=== PATIENT | female | born 1965 | race Caucasian/White ===

== ENCOUNTER → 2019-12-22 09:16 | Outpatient (CLI) | payer OTHER, SELFPAY ==
--- NOTE | ~2019-12-22 | DEXA_ITS ---
Bone Density Report Name: Marry Jordan Age: 54 Sex: Female Ethnicity: White Date of : 1965 Indication: postmenopausal; screening for osteoporosis; cancer; Referring Provider: HAROON NEFF Study: Bone densitometry was performed. Exam Date: December 22, 2019 Accession number: [id number] Bone Density: Region BMD T-score Z-score Classification AP Spine (L1-L4) 1.008 -0.4 0.7 Normal Femoral Neck (Left) 0.959 1.0 2.1 Normal Total Hip (Left) 1.053 0.9 1.6 Normal Femoral Neck (Right) 0.957 1.0 2.0 Normal Total Hip (Right) 1.088 1.2 1.9 Normal Total Hip Mean 1.071 1.1 1.8 Normal World Health Organization criteria for BMD impression classify patients as: Normal (T-score at or above -1.0), Osteopenia (T-score between -1.0 and -2.5), or Osteoporosis (T-score at or below -2.5). 10-year Fracture Risk: FRAX not reported because: All T-scores for Spine Total, Hip Total, Femoral Neck at or above -1.0 Previous Exams: Region Exam Age BMD T-score BMD Change BMD Change Date g/cm2 vs Baseline vs Previous AP Spine(L1-L4) 12/22/2019 54 1.008 -0.4 -0.073* -0.023 11/19/2017 52 1.031 -0.1 -0.050 -0.050 09/23/2014 49 1.081 0.3 Total Hip(Left) 12/22/2019 54 1.053 0.9 -0.017 -0.027 11/19/2017 52 1.080 1.1 0.010 0.010 09/23/2014 49 1.070 1.0 Total Hip(Right) 12/22/2019 54 1.088 1.2 -0.051* -0.048 11/19/2017 52 1.137 1.6 -0.002 -0.002 09/23/2014 49 1.139 1.6 *Denotes significance at 95% confidence level, LSC for AP Spine = 0.022 g/cm2, LSC for Total Hip = 0.027 g/cm2 Clinical Information Provided by Patient: Has used the following medications: Vitamin D Has the following medical conditions: Cancer Patient maximum height was 65 Menopause Age: 39 No regular weight bearing exercise Does not regularly consume dairy products Onset of menses at age 12 Number of children 0 Impression: The patient has normal bone mass. No significant bone loss was observed. Discussion: BONE DENSITY IS ABOVE THE MINIMUM DESIRABLE LEVEL AT ALL SKELETAL SITES TESTED. This patient?s bone mineral density is above the minimum desirable level (T-score -1.0 or better) at all sites measured. The patient should follow a healthful lifestyle (good nutrition with adequate calcium and vitamin D, and appropriate weight-bearing exercise). Fo
== END ==
PROVIDERS: Visit Provider Obstetrics & Gynecology
DX: Z78.0 Asymptomatic menopausal state (principal); Z13.820 Encounter for screening for osteoporosis
CPT/HCPCS: 77080

== ENCOUNTER 2020-10-01 12:37 | Outpatient (NON) | payer OTHER, SELFPAY ==
[2020-10-02 23:03] LABS: SARS-CoV-2 RNA PCR Positive
== END 2020-10-01 12:38 ==
PROVIDERS: Visit Provider Family Medicine Adolescent Medicine
DX: U07.1 COVID-19 (principal)
CPT/HCPCS: 87635; C9803; U0003

== ENCOUNTER → 2023-02-13 13:16 | Outpatient (CLI) | payer OTHER, SELFPAY ==
--- NOTE | ~2023-02-13 | DEXA_ITS ---
Bone Density Report Name: MELISSA BARRIGA Age: 57 Sex: Female Ethnicity: White Date of : 1965 Indication: postmenopausal; screening for osteoporosis; Referring Provider: QUOC, BARRY Study: Bone densitometry was performed. Exam Date: February 13, 2023 Accession number: [id number] Bone Density: Region BMD T-score Z-score Classification AP Spine (L1-L4) 1.057 0.1 1.4 Normal Femoral Neck (Left) 0.915 0.6 1.8 Normal Total Hip (Left) 1.076 1.1 2.0 Normal Femoral Neck (Right) 0.981 1.2 2.4 Normal Total Hip (Right) 1.136 1.6 2.5 Normal Total Hip Mean 1.106 1.4 2.3 Normal World Health Organization criteria for BMD impression classify patients as: Normal (T-score at or above -1.0), Osteopenia (T-score between -1.0 and -2.5), or Osteoporosis (T-score at or below -2.5). 10-year Fracture Risk: FRAX not reported because: All T-scores for Spine Total, Hip Total, Femoral Neck at or above -1.0 Previous Exams: Region Exam Age BMD T-score BMD Change BMD Change Date g/cm2 vs Baseline vs Previous AP Spine(L1-L4) 02/13/2023 57 1.057 0.1 -0.023* 0.050* 12/22/2019 54 1.008 -0.4 -0.073* -0.023 11/19/2017 52 1.031 -0.1 -0.050 -0.050 09/23/2014 49 1.081 0.3 Total Hip(Left) 02/13/2023 57 1.076 1.1 0.006 0.023 12/22/2019 54 1.053 0.9 -0.017 -0.027 11/19/2017 52 1.080 1.1 0.010 0.010 09/23/2014 49 1.070 1.0 Total Hip(Right) 02/13/2023 57 1.136 1.6 -0.003 0.048* 12/22/2019 54 1.088 1.2 -0.051* -0.048 11/19/2017 52 1.137 1.6 -0.002 -0.002 09/23/2014 49 1.139 1.6 *Denotes significance at 95% confidence level, LSC for AP Spine = 0.022 g/cm2, LSC for Total Hip = 0.027 g/cm2 Clinical Information Provided by Patient: Patient maximum height was 65.5 Menopause Age: 39 Drinks caffeinated beverages Onset of menses at age 12 Number of children 0 Missed period for more than 6 months in a row Impression: The patient has normal bone mass. No significant bone loss was observed. Discussion: BONE DENSITY IS ABOVE THE MINIMUM DESIRABLE LEVEL AT ALL SKELETAL SITES TESTED. This patient?s bone mineral density is above the minimum desirable level (T-score -1.0 or better) at all sites measured. The patient should follow a healthful lifestyle (good
== END ==
PROVIDERS: PCP Family Medicine Adolescent Medicine; Visit Provider Nurse Practitioner
DX: Z78.0 Asymptomatic menopausal state (principal)
CPT/HCPCS: 77080

== ENCOUNTER 2024-12-09 14:33 | Outpatient (CLI) | payer OTHER, SELFPAY ==
--- NOTE | ~2024-12-09 | MM_ITS ---
EXAMINATION: MM screening cesar BI w sissy HISTORY: Screening TECHNIQUE: Craniocaudal and mediolateral oblique 3-D tomosynthesis images were obtained and synthetic 2-D images were generated. CAD analysis was submitted and interpreted. COMPARISON: No prior mammogram is available for comparison at this institution. BREAST PARENCHYMAL COMPOSITION: Not dense: There are scattered areas of fibroglandular density. FINDINGS: There are clustered punctate calcifications in the upper central aspect of the left breast. There are coarse benign calcifications of the right breast with architectural distortion from prior lumpectomy. IMPRESSION: 1. Clustered punctate left breast calcifications. 2. Magnification views are recommended. BI-RADS Category 0: Incomplete: Needs additional imaging evaluation. Reviewed, dictated and finalized at location B. EDITATION COORDINATOR
== END 2024-12-09 14:34 | disposition home or self-care (01) ==
LOC: MICIMG 14:37
PROVIDERS: PCP Family Medicine Adolescent Medicine; Visit Provider Nurse Practitioner
DX: Z12.31 Encounter for screening mammogram for malignant neoplasm of breast (principal); R92.8 Other abnormal and inconclusive findings on diagnostic imaging of breast
CPT/HCPCS: 77063; 77067

== ENCOUNTER 2024-12-31 09:29 | Outpatient (CLI) | payer OTHER, SELFPAY ==
--- NOTE | ~2024-12-31 | MM_ITS ---
EXAMINATION: MM diagnostic cesar LT w sissy HISTORY: Left breast microcalcifications TECHNIQUE: Additional Spot magnification images of the left breast were performed and synthetic 2-D i mages were generated. CAD analysis was submitted and interpreted. COMPARISON: 12/09/2024, 12/03/2023 BREAST PARENCHYMAL COMPOSITION:Not Dense. There are scattered areas of fibroglandular density. FINDINGS: Spot compression views demonstrate amorphous and somewhat ill-defined microcalcifications i n the central to slightly upper left breast. No distinct groups or pleomorphic microcalcifications ar e seen. No mass lesion or distortion. IMPRESSION: Amorphous and somewhat ill-defined microcalcifications of the left breast, as above, probably benign. Six-month follow-up mammography recommended. BI-RADS category 3, probably benign findings. Reviewed, dictated and finalized at location . ESTATE DEVELOPER IMPRESSION: Amorphous and somewhat ill-defined microcalcifications of the left breast, as a cyrus, probably benign. Six-month follow-up mammography recommended. BI-RADS category 3, probably benign findings.
== END 2024-12-31 09:30 | disposition home or self-care (01) ==
PROVIDERS: PCP Family Medicine Adolescent Medicine; Visit Provider Nurse Practitioner Women's Health
DX: R92.0 Mammographic microcalcification found on diagnostic imaging of breast (principal)
CPT/HCPCS: 77061; 77065; G0279

== ENCOUNTER 2025-02-16 00:18 | Day surgery (SDC) | payer OTHER, SELFPAY ==
[2025-02-04 12:44] VITALS: BMI 32.8
--- OUTSIDE RECORDS SUMMARY | 2025-02-16 00:21 | XMS_ITS | Continuity of Care Document ---
Author Organization [facility] Address [address] [place] [address] Exec utive [facility] [address] [place] [address] Phone Care Team Providers Care Arcgis Developer Name Role Phone Caban OD, Charbel Unavailable Unavailable Procedures Procedure Date Post-op Follow-up Visit Advance Directives Directive Yes / No Effective Date File Name No Information Encounters Encounter Description Practice Location Reason(s) For Visit Diagnoses Date Provider Providers Copied on Encounter [facility], [address], [place], [place], [address], [place] tel:[phone] [facility] No Information [phone] Caban OD Charbel. [address] [facility] , [address], [place], [address], [place]. tel:[phone] Family History Family Member Type Diagnosis Age At Onset No Information Payers Payer name Insurance type Covered libertarian ID Authoriza tion(s) No Information Social History Type Description Quantity Date Captured Comments Sex Female Smoking Status No Information Chief Complaint And Reason For Visit No Information Reason For Referral Reason For Referral No Information History Of Present Illness Encounter Date Complaint History Of Prese nt Illness No Information Functional Status Date Functional Assessmen t No Information Instructions Date Instruction Additional Infor mation No Information Assessments Type Assessment Date No Information Patient Care Teams Name Effective Dates (start - stop) Status Members No Information
--- OUTSIDE RECORDS SUMMARY | 2025-02-16 00:21 | XMS_ITS | Clinical Summary ---
Author Organization [facility] Address [address] [address] Phone Care Team Providers Care Scheduling Manager Name Role Phone Marko Antonio MD Primary Care Provider + Allergies Active Allergy Reactions Criticality Noted Date Comments Clindamycin Hives 11/04/2019 Sulfa Antibiotics Hives 11/04/2019 Tramadol Anxiety 11/04/2019 Medications METFORMIN HCL PO Take 2,000 mg by mouth daily. Active SITagliptin (JANUVIA) 100 MG Tablet Take 100 mg by mouth daily. Active atorvastatin (LIPITOR) 10 MG Tablet Take 10 mg by mouth daily. Active furosemide (LASIX) 20 MG TabletIndicatio ns:Edema Take 20 mg by mouth daily as needed. Indications: Edema Active Cholecalciferol (VITAMIN D3 PO) Take 500 mcg by mouth daily. Active ZOLPIDEM TARTRATE PO Take by mouth nightly as needed. Active Active Problems Problem Noted Date Diagnosed Date MAYA (obstructive sleep apnea) 02/03/2020 Type 2 diabetes mellitus wit hout complication, without long-term current use of insulin 02/03/2020 Hypercholesteremia 02/03/2020 Encounters Date Type Department Care Team Description 12/18/2024 Telephone [facility] - Gastroenterology - [place] [address] [place] [address] Jessica Alexander APRN, NUTRITION SERVICES MANAGER 12/16/2024 Telephone [facility] - Gastroenterology - [place] [address] [place] [address] Jessica Alexander APRN, NUTRITION SERVICES MANAGER from Last 3 Months Family History Medical History Relation Name Comments Hypertension Father Hypertension Mother Relation Name Status Comments Father Mother Social History Tobacco Use Types Packs/Day Years Used Date Smoking Tobacco: Former Cigarettes 1 20 0 11/24/1987 - 11/24/2007 Smokeless Tobacco: Never Alcohol Use Standard Drinks/Week Comments Yes 0 (1 standard drink = 0.6 oz pur e alcohol) occassional Comments Unknown Sex and Gender Information Value Date Recorded Sex Assigned at Not on file Legal Sex Female 8:08 PM CDT Gender Identity Not on file Sexual Orientation Not on file Last Filed Vital Signs Vital Sign Reading Time Taken Comments Blood Pressure 149/85 11/24/2019 7:07 AM COLLAR SEWER Pulse 75 11/24/2019 7:07 AM COLLAR SEWER Temperature 36 C (96.8 F) 11/24/2019 7:07 AM COLLAR SEWER Respiratory Rate 16 11/24/2019 7:07 AM COLLAR SEWER Oxygen Saturation 100% 11/24/2019 7:07 AM COLLAR SEWER Inhaled Oxygen Concentration - - Weight 95.3 kg (210 lb) 11/04/2019 1:00 PM COLLAR SEWER Height 165.1 cm (5' 5 ) 11/04/2019 1:00 PM COLLAR SEWER Body Mass Index 34.95 11/04/2019 1:00 PM COLLAR SEWER Plan of Treatment Health Maintenance Due Date Last Done Comments Diabetes: Eye Exam 1965 Diabetes: Foot Exam 1965 Diabetes: Hemoglobin A1c 1965 Hepatitis C Virus (HCV) Screening 1965 TdaP Immunization 1965 Mammogram 1974 Diabetes: Nephropathy Screening 1982 Pneumococcal Immunization (5 0+ years) (1 of 2 - PCV) 1983 08/19/2018 Pap Smear 1985 Cervical Cancer Screening (CCS) 1994 HPV/Cotest 1994 Cologuard 2014 Immunochemical Fecal Occult Blood 2014 Zoster Immunization (1 of 2) 2014 Influenza Immunization (#1) 2024 SARS-COV-2 Immunization ( season) 2024 Colonoscopy 11/24/2024 11/24/2019, 11/02/2014 Colorectal Cancer Screening 11/24/2024 Respiratory Syncytial Virus (RSV) Immunization (Adult) (1 - 1-dose 75+ series) 2039 11/24/2019, 11/02/2014 Pneumococcal Immunization Combined Discontinued 08/19/2018 Hepatitis B Immunization Aged Out No longer eligible based on patient's age to complete this topic Meningococcal Immunization (ACWY) Aged Out No longer eligible based on patient's age to complete this topic Rotavirus Immunization Aged Out No lo nger eligible based on patient's age to complete this topic Procedures Procedure Name Priority Date/Time Associated Diagnosis Comments COLONOSCOPY Routine 11/02/2014 from Last 3 Months or Most Recently Relevant to Health Maintenance Results * COLONOSCOPY (11/02/2014) Charbel Muller DO PROCEDURE/MINOR SURGICAL ORDERA BLES Final Result from Last 3 Months or Most Recently Relevant to Health Maintenance Care Teams Scheduling Manager Relationship Specialty Start Date End Date Marko Antonio MD [address] [place] [phone] PCP - General Family Medicine 11/24/19
--- OUTSIDE RECORDS SUMMARY | 2025-02-16 00:21 | XMS_ITS | Encounter Summary ---
Author Organization [facility] Address [address] [place] [address] Care Team Providers Care Protocol Manager Name Role Phone Unavailable Primary Care Provider Unavailabl e Prior Encounters Date Type Department Care Team Description 11/24/2019 Converted 13x Documents [facility] [address] [place] [address] <No scans attached> 11/24/2019 Converted CPS Chart Documents [facility] [address] [place] [address] <No scans attached> 11/24/2019 Converted CPS Chart Documents [facility] [address] [place] [address] <No scans attached> 11/24/2019 Converted 13x Documents [facility] [address] [place] [address] <No scans attached> 11/24/2019 Converted 13x Documents [facility] [address] [place] [address] <No scans attached> Plan of Treatment Not on file Procedures Procedure Name Priority Date/Time Associated Diagnosis Comments CANCELLED APPOINTMENT Routine 03/07/2019 2:00 AM CDT NC X-RAY Routine 12/23/2018 2:00 AM TUBE BUILDER 13 CEMENT CROWN Routine 12/23/2018 2:00 AM TUBE BUILDER 13 CERECFIRED CROWNPOST Routine 12/23/19 19 2:00 AM TUBE BUILDER 15 EXTRACTION, ERUPTED TOOTH REQUIRING REMOVAL OF BONE AND/OR SECTIONING OF TOOTH Routine 12/23/2018 2:00 AM TUBE BUILDER 14 EXTRACTION, ERUPTED TOOTH REQUIRING REMOVAL OF BONE AND/OR SECTIONING OF TOOTH Routine 12/23/2018 2:00 AM TUBE BUILDER CANCELLED APPOINTMENT Routine 10/28/2018 2:00 AM TUBE BUILDER 13 CORE BUILDUP, INCLUDING ANY PINS WHEN REQUIRED Routine 09/02/2018 2:00 AM CDT 13 ENDODONTIC THERAPY, PREMOLAR TOOTH (EXCLUDING FINAL MORMONISM) Routine 09/02/2018 2:00 AM CDT NC X-RAY Routine 09/02/2018 2:00 AM CDT EXTERNAL BLEACHING - PER ARCH - PERFORMED IN OFFICE Routine 08/16/2018 2:00 AM CDT 1 LIMITED ORAL EVALUATION - PROBLEM FOCUSED Routine 07/15/2018 2:00 AM CDT PANORAMIC RADIOGRAPHIC IMAGE Routine 07/15/2018 2:00 AM CDT ADDITIONAL X-RAY Routine 07/15/2018 2:00 AM CDT SINGLE X-RAY Routine 07/15/2018 2:00 AM CDT 15 LIMITED ORAL EVALUATION - PROBLEM FOCUSED Routine 07/12/2018 2:00 AM CDT ADDITIONAL X-RAY Routine 07/12/2018 2:00 AM CDT SINGLE X-RAY Routine 07/12/2018 2:00 AM CDT 15 MOL COMPOSITE FILLING Routine 018 2:00 AM CDT 14 DO COMPOSITE FILLING Routine 07/12/20 18 2:00 AM CDT ORAL SURG CONSULT Routine 06/27/2018 2:0 0 AM CDT 1 REMOVAL OF IMPACTED TOOTH - COMPLETELY BONY Routine 06/27/2018 2:00 AM CDT 2 EXTRACTION, ERUPTED TOOTH REQUIRING REMOVAL OF BONE AND/OR SECTIONING OF TOOTH Routine 06/27/2018 2:00 AM CDT THERAPEUTIC PARENTERAL DRUGS, TWO OR MORE ADMINISTRATIONS, DIFFERENT MEDICATIONS Routine 06/27/2018 2:00 AM CDT DEEP SEDATION/GENERAL ANESTHESIA EACH SUBSEQUENT 15 MINUTE INCREMENT Routine 06/27/2018 2:00 AM CDT DEEP SEDATION/GENERAL ANESTHESIA FIRST 15 MINUTES Routine 06/27/2018 2:00 AM CDT 3 ENDODONTIC THERAPY, MOLAR TOOTH (EXCLUDING FINAL MORMONISM) Routine 06/14/2018 2:00 AM CDT 3 CROWN PFM POST Routine 06/14/2018 2:00 AM CDT 4 LIMITED ORAL EVALUATION - PROBLEM FOCUSED Routine 06/14/2018 2:00 AM CDT 3 LIMITED ORAL EVALUATION - PROBLEM FOCUSED Routine 06/14/2018 2:00 AM CDT 2 LIMITED ORAL EVALUATION - PROBLEM FOCUSED Routine 06/14/2018 2:00 AM CDT PANORAMIC RADIOGRAPHIC IMAGE Routine 06/14/2018 2:00 AM CDT ADDITIONAL X-RAY Routine 06/14/2018 2:00 AM CDT SINGLE X-RAY Routine 06/14/2018 2:00 AM CDT Visit Diagnoses Not on file
--- OUTSIDE RECORDS SUMMARY | 2025-02-16 00:21 | XMS_ITS | Clinical Summary ---
Author Organization [facility] Address [address] [facility] [address] Care Team Providers Care Boots And Shoes Supervisor Name Role Phone Unavailable Primary Care Provider Unavailabl e Social History Tobacco Use Types Packs/Day Years Used Date Smoking Tobacco: Never Assessed Comments Unknown Sex and Gender Information Value Date Recorded Sex Assigned at Not on file Legal Sex Female 1:20 AM PST Gender Identity Not on file Sexual Orientation Not on file Plan of Treatment Not on file
--- OUTSIDE RECORDS SUMMARY | 2025-02-16 00:21 | XMS_ITS | Continuity of Care Document ---
Author Organization [facility] Address [address] [place] [address] [place] [address] Phone Care Team Providers Care Wiring Technician Name Role Phone AdinaJayson Swanson Unavailable Unavailable Procedures Procedure Date PT RE-EVALUATION THERAPEUTIC EXERCISES NEUROMUSCULAR RE-ED MANUAL THERAPY FUNC ACTIVITY 15 MIN THERAPEUTIC EXERCISES NEUROMUSCULAR RE-ED MANUAL THERAPY FUNC ACTIVITY 15 MIN THERAPEUTIC EXERCISES NEUROMUSCULAR RE-ED MANUAL THERAPY FUNC ACTIVITY 15 MIN THERAPEUTIC EXERCISES NEUROMUSCULAR RE-ED MANUAL THERAPY FUNC ACTIVITY 15 MIN THERAPEUTIC EXERCISES NEUROMUSCULAR RE-ED MANUAL THERAPY FUNC ACTIVITY 15 MIN THERAPEUTIC EXERCISES NEUROMUSCULAR RE-ED MANUAL THERAPY FUNC ACTIVITY 15 MIN THERAPEUTIC EXERCISES NEUROMUSCULAR RE-ED MANUAL THERAPY FUNC ACTIVITY 15 MIN IONTOPHORESIS 15 MIN HOT/COLD PACK THERAPEUTIC EXERCISES NEUROMUSCULAR RE-ED MANUAL THERAPY FUNC ACTIVITY 15 MIN HOT/COLD PACK ELECTRIC STIMULATION UNATT THERAPEUTIC EXERCISES NEUROMUSCULAR RE-ED MANUAL THERAPY FUNC ACTIVITY 15 MIN IONTOPHORESIS 15 MIN HOT/COLD PACK THERAPEUTIC EXERCISES NEUROMUSCULAR RE-ED MANUAL THERAPY FUNC ACTIVITY 15 MIN IONTOPHORESIS 15 MIN HOT/COLD PACK THERAPEUTIC EXERCISES NEUROMUSCULAR RE-ED MANUAL THERAPY FUNC ACTIVITY 15 MIN IONTOPHORESIS 15 MIN HOT/COLD PACK THERAPEUTIC EXERCISES NEUROMUSCULAR RE-ED MANUAL THERAPY FUNC ACTIVITY 15 MIN IONTOPHORESIS 15 MIN HOT/COLD PACK THERAPEUTIC EXERCISES NEUROMUSCULAR RE-ED MANUAL THERAPY FUNC ACTIVITY 15 MIN IONTOPHORESIS 15 MIN HOT/COLD PACK THERAPEUTIC EXERCISES NEUROMUSCULAR RE-ED MANUAL THERAPY FUNC ACTIVITY 15 MIN IONTOPHORESIS 15 MIN HOT/COLD PACK THERAPEUTIC EXERCISES NEUROMUSCULAR RE-ED MANUAL THERAPY FUNC ACTIVITY 15 MIN IONTOPHORESIS 15 MIN HOT/COLD PACK THERAPEUTIC EXERCISES NEUROMUSCULAR RE-ED MANUAL THERAPY FUNC ACTIVITY 15 MIN IONTOPHORESIS 15 MIN HOT/COLD PACK THERAPEUTIC EXERCISES MANUAL THERAPY FUNC ACTIVITY 15 MIN IONTOPHORESIS 15 MIN HOT/COLD PACK PT EVALUATION THERAPEUTIC EXERCISES MANUAL THERAPY HOT/COLD PACK Advance Directives Directive Yes / No Effective Date File Name No Information Encounters Encounter Description Practice Location Reason(s) For Visit Diagnoses Date Provider Providers Copied on Encounter [facility] [address], [place], [place], [id number], tel:[phone] [facility] No Information Carole Tyler. [address] [facility], [address], [place], [address], . tel:[phone], [place], [place], [address], [place] tel:[phone] [facility] No Information Carole Tyler. [address] [facility], [address], [place], [place], [facility], [place]. tel:[phone], [place], [place], [address], tel:[phone] [facility] No Information Carole Tyler. [address] [facility], [address], [place], [address], [place]. tel:[phone], [place], [place], [address], tel:[phone] [facility] No Information Carole Tyler. [address] [facility], [facility] [address], [place], [address], [place]. tel:[phone], [place], [place], [address], [place] tel:[phone] [facility] No Information Carole Tyler. [address] [facility], [address], [place], [address], [place]. tel:[phone], [place], [place], [address], [place] tel:[phone] [facility] No Information Carole Tyler. [address] [facility], [address], [place], [address], [place]. tel:[phone], [place], [place], [address], [place] tel:[phone] [facility] No Information Carole Tyler. [address] [facility], [address], [place], [address], [place]. tel:[phone] [address], [place], [place], [address], [place] tel:[phone] [facility] No Information Gerardo Felix. . [address], [place], [place], [address], tel:[phone] [facility] No Information Carole Tyler. [address] [facility], [address], [place], [address], [place]. tel:[phone] [address], [place], [place], [address], [place] tel:[phone] [facility] No Information Carole Tyler. [address] [facility], [address], [place], [address], [place]. tel:[phone] [address], [place], [place], [address], [place] tel:[phone] [facility] No Information Carole Tyler. [address] [facility], [address], [place], [address], [place]. tel:[phone], [place], [place], [address], [place] tel:[phone] [facility] No Information Chuck Kunz . [address] [facility], [address], [place], [address], [place]. tel:[phone], [place], [place], [address], [place] tel:[phone] [facility] No Information Carole Tyler. [address] [facility], [address], [place], [facility], [place]. tel:[phone], [place], [place], [address], [place] tel:[phone] [facility] No Information Carole Tyler. [address] [facility], [address], [place], [facility], [place]. tel:[phone] [address], [place], [place], [address], tel:[phone] [facility] No Information Tadeo Altamirano. [address] [facility], [address], [place], [facility], [place]. tel:[phone] [address], [place], [place], [address], [place] tel:[phone] [facility] No Information Carole Tyler. [address] [facility], [address], [place], [facility], [place]. tel:[phone], [place], [place], [address], [place] tel:[phone] [facility] No Information Carole Tyler. [address] [facility], [address], [place], [facility], [place]. tel:[phone], [place], [place], [address], [place] tel:[phone] [facility] Pain in joint involving ankle and foot Tadeo Altamirano. [address] [facility], [address], [place], [address], [place]. tel:[phone] Family History Family Member Type Diagnosis Age At Onset No Information Payers Payer name Insurance type Covered libertarian ID Efrem silva(s) r [id number] [facility] 2012 Social History Type Description Quantity Date Captured [...]
--- OUTSIDE RECORDS SUMMARY | 2025-02-16 00:21 | XMS_ITS ---
Author Organization [facility] Administrative Offices Address [address] [place] [address] Care Team Providers Care Heat Reader Name Role Phone Marko Antonio MD Primary Care Provider [phone]- [phone] Active Problems Patient Care Coordination No te Formatting of this note migh t be different from the original. Primary Care: Marko Antonio MD Referring Provider: Marko Antonio MD [address] [place] [phone] Other: Dr Lavern White MD--Electronic Train Control Technician ([facility] @ ) Problem Noted Date Diagnosed Date COVID-19 06/02/2024 Paroxysmal A-fib 06/02/2024 Mobitz type 2 second degree AV block 06/02/2024 Pneumonia due to COVID-19 virus 06/02/2024 Elevated troponin 06/02/2024 Nonsustained ventricular tachycardia 06/02/2024 Mobitz type 2 second degree atrioventricular blo ck 06/02/2024 Lung nodules 06/01/2024 Heart block 06/01/2024 H/O prosthetic aortic valve replacement 10/01/20 23 Sinus tachycardia 10/01/2023 Hard to intubate 08/21/2023 Hyperlipidemia 03/02/2021 Type 2 diabetes mellitus wit hout complication, without long-term current use of insulin 02/03/2020 Dyspnea on exertion 02/04/2019 HTN (hypertension) 11/06/2018 S/P pericardial window creation 10/23/2018 Aortic stenosis, moderate 10/23/2018 Breast Cancer, RIGHT, cT1N0, UOQ (174.4) 014 Overview (05/13/2015): Stage: Clinical I (T1 N0 M0); Pathologic T1 N0 Date of Diagnosis: 04/08/2014 Diagnosis: RIGHT 1.2 cm G2 IDC, LEFT LCIS Prognostic Factors: ER 5/8, OK 8/8, H2N (-) MIB1 10% Mammogram preop: (-)suspicious microcalcifications Surgeon: Barber Surgery: 04/24/14 right lump/SLN and left NL Medical Oncologist: Jerman Chemotherapy: none Radiation Oncologist: Carri Radiation: conventional fractionation whole breast radiation between 05/25/2014 and 07/13/2014 Hormonal therapy: Tamoxifen--> Letrozole Oncotype: 6 (low) Invasive ductal carcinoma of breast 04/15/2014 Abnormal mammogram, left 03/20/2014 Overview (03/24/2014): Plan left stereo. She will need US at her 6 month mammogram for probable benign nodules Diabetes mellitus Current Treatment and Therapy Plans No current plan information found. Past Treatment and Therapy Plans No past plan information found. Lifetime Dose Tracking * Chemical Lifetime Dose Automatic Entry Manual Entr y Effective Dose 79.37 mSv 79.37 mSv 0 mSv Total DLP 5,166.01 DLP 5,166.01 DLP 0 DLP CTDIvol Max 151.02 mGy 151.02 mGy 0 mGy CTDIvol Min 61.77 mGy 61.77 mGy 0 mGy Air Kerma 198 mGy 0 mGy 198 mGy Dose Area Product (DAP) 15.921 Gy-cm2 0 Gy-cm2 15. 921 Gy-cm2
--- OUTSIDE RECORDS SUMMARY | 2025-02-16 00:21 | XMS_ITS | Clinical Summary ---
Author Organization [facility] Administrative Offices Address [address] [place] [address] Care Team Providers Care Cutter Operator Brick Name Role Phone Marko Antonio MD Primary Care Provider [phone]- [phone] Allergies Active Allergy Reactions Criticality Noted Date Comments Clindamycin Anxiety Low 10/24/2018 Oxycodone Nausea and Vomiting Low 08/21/2023 Sulfa (Sulfonamide Antibiotics) Hives High 01/2014 Tramadol Hives High 03/07/2014 Medications zolpidem (AMBIEN) 10 mg tablet Take 10 mg by mouth nightly as needed for Insomnia. Active atorvastatin (LIPITOR) 10 mg tablet Take 10 mg by mouth daily at bedtime. 7 Active ONETOUCH VERIO Strip 7 Active ONETOUCH VERIO SYSTEM 7 Active ONE TOUCH DELICA 33 gauge 7 Active metFORMIN (GLUCOPHAGE XR) 500 mg Extended Release 24 hour tablet Take 2,000 mg by mouth daily at bedtime. bottle noted in home visit, pt states she has been taking this dose for a long time 7 Active glimepiride (AMARYL) 1 mg tablet Take 1 mg by mouth daily at bedtime. Active aspirin (ECOTRIN EC) 81 mg Tablet, Delayed Release (E.C.) Take 1 Tablet (81 mg) by mouth daily with breakfast. 90 Tablet 3 4 Active Mounjaro 5 mg/0.5 mL Pen Injector INJECT 5 MG UNDER THE SKIN WEEKLY FOR 4 WEEKS 4 Active metoprolol succinate (TOPROL XL) 50 mg Extended Release 24 hour tablet TAKE 1 TABLET BY MOUTH EVERY DAY 100 Tablet 2 5 Active losartan (COZAAR) 50 mg tabletIndications :Primary hypertension TAKE 1 TABLET BY MOUTH EVERY DAY 100 Tablet 2 5 Active Active Problems Patient Care Coordination No te Formatting of this note migh t be different from the original. Primary Care: Marko Antonio MD Referring Provider: Marko Antonio MD [address] [place] [phone] Other: Dr Lavern White MD--School Bus Attendant ([facility] ) Problem [...] IDC, LEFT LCIS Prognostic Factors: ER 5/8, [place] 8/8, H2N (-) MIB1 10% Mammogram preop: (-)suspicious microcalcifications Surgeon: Bart Surgery: 04/24/14 right lump/SLN and left NL Medical Oncologist: Jerman Chemotherapy: none Radiation Oncologist: Carri Radiation: conventional fractionation whole breast radiation between 05/25/2014 and 07/13/2014 Hormonal therapy: Tamoxifen--> Letrozole Oncotype: 6 (low) Invasive ductal carcinoma of breast 04/15/2014 Abnormal mammogram, left 03/20/2014 Overview (03/24/2014): Plan left stereo. She will need US at her 6 month mammogram for probable benign nodules Diabetes mellitus Encounters Date Type Department Care Team Description 02/12/2025 Telephone [facility] [address] [place] [address] Faraz Pace MD CRMD form 02/12/2025 Telephone [facility] [address] [place] [address] [place] MD Needs Form Or Letter Filled Out (Clearance Form ) 02/10/2025 External Device Data STL ABSTRACTION Provider, Abstract 12/30/2024 External Device Data STL ABSTRACTION Provider, Abstract 12/23/2024 External Device Data STL ABSTRACTION Provider, Abstract 12/13/2024 Refill [facility] [address] [place] [address] [place] MD Primary hypertension 12/11/2024 7:45 AM PROFESSOR OF GEOGRAPHY Procedure visit [facility] AT [address] [place] [address] Mobitz type 2 second degree AV block (Primary Dx); Cardiac pacemaker 12/09/2024 Refill [facility] [place] [address] [place] [address] [place] MD 12/02/2024 External Device Data STL ABSTRACTION Provider, Abstract 11/26/2024 External Device Data STL ABSTRACTION Provider, Abstract 11/26/2024 External Device Data STL ABSTRACTION Provider, Abstract from Last 3 Months Immunizations Immunization Administration Dates Next Due Influenza Seasonal Unspecified Formulation IM Pneumococcal conjugate, unspecified formulation 08/19/2018 Family History Medical History Relation Name Comments Diabetes Father Breast Cancer Maternal Aunt Ovarian Cancer Maternal Grandmother Age a t onset late-20's Stroke Mother Uterine Cancer Neg Hx Relation Name Status Comments Father Maternal Aunt Maternal Grandmother Mother Social History Tobacco Use Types Packs/Day Years Used Date Smoking Tobacco: Former Cigarettes 1 25 0 03/07/1986 - 03/07/2011 Passive Smoke Exposure: Never Smokeless Tobacco: Never Tobacco Cessation:Counseling Given: Not Answered Alcohol Use Standard Drinks/Week Comments No 0 (1 standard drink = 0.6 oz pur e alcohol) OASIS D0700: Social Isolation Answer Da te Recorded Frequency of experiencing loneliness or isolatio n Never 09/04/2023 OASIS B1300: Health Literacy Answer Epifanio e Recorded Frequency of needing help to read materials from doctor or pharmacy Never 08/28/2023 Feeling Safe Answer Date Recorded Are you in a relationship wi th someone who hurts you emotionally and/or physically? No 06/01/2024 Food Insecurity Answer Date Recorded Social/Environmental Concerns No concerns Transportation Needs Answer Date Record ed Social/Environmental Concerns No concerns Housing Stability Answer Date Recorded Social/Environmental Concerns No concerns Utility Needs Answer Date Recorded Social/Environmental Concerns No concerns Comments No Sex and Gender Information Value Date Recorded Sex Assigned at Not on file Legal Sex Female 3:47 PM PROFESSOR OF GEOGRAPHY Gender Identity Not on file Sexual Orientation Not on file Occupation Industry Job Start Date Job End Date Not on file Not on file Not on file Not on file Last Filed Vital Signs Vital Sign Reading Time Taken Comments Blood Pressure 132/82 10/08/2024 1:50 PM PROFESSOR OF GEOGRAPHY Pulse 93 10/08/2024 1:50 PM PROFESSOR OF GEOGRAPHY Temperature 36.9 C (98.4 F) 06/04/2024 11:00 AM CDT Respiratory Rate 20 06/04/2024 12:00 PM CDT Oxygen Saturation 99% 10/08/2024 1:50 PM PROFESSOR OF GEOGRAPHY Inhaled Oxygen Concentration - - Weight 95.3 kg (210 lb) 10/08/2024 1:50 PM PROFESSOR OF GEOGRAPHY Height 165.1 cm (5' 5 ) 10/08/2024 1:50 PM PROFESSOR OF GEOGRAPHY Body Mass Index 34.95 10/08/2024 1:50 PM PROFESSOR OF GEOGRAPHY Plan of Treatment Upcoming Encounters Date Type Department Care Team (Late st Contact Info) Description 03/17/2025 4:15 PM CDT Procedure visit [facility] AT [facility] [address] [place] [phone] 03/20/2025 2:15 PM CDT Office Visit [facility] AT [facility] [address] [place] [phone] Faraz Pace MD [address] [place] [address] 04/15/2025 2:45 PM CDT Office Visit [facility] [place] [address] [place] [address] [place] MD [address] [place] [address] Health Maintenance Due Date Last Done Comments DIABETES ANNUAL FOOT EXAM 1982 DIABETES ANNUAL RETINAL EXAM 1982 DIABETES MICROALBUMIN ANNUAL SCREEN 1982 DTAP/TDAP/TD VACCINES (1 - Tdap) 1983 HPV/Cotest (21-29) 1985 CERVICAL CANCER SCREENING 1994 HPV/Cotest (30-65) 1994 PAP SMEAR 1994 FIT-DNA Q 3 years 2009 FIT/FOBT Q 1 year 2009 Flex Sig/CT Colonography Q 5 years 2009 Lung Cancer Screening 2014 ZOSTER VACCINE (1 of 2) 2014 DIABETES HBA1C Q 6 MONTHS 02/14/20242022, 08/17/2022, 03/19/2018, Additional history exists INFLUENZA VACCINE (#1) 2024 08/19/2018, 2016 COVID-19 Vaccine ( season) 2024 09/01/2022, 08/31/2021, 12/24/2020, Additional history exists LDL CHOLESTEROL ANNUAL 10/04/2024 3, 06/09/2021, 11/14/2016, Additional history exists COLORECTAL SCREENING 11/02/2024 11/02/2014, 11/02/20 14 Colorectal Cancer Screening 11/02/2024 Preventative Visit- Commercial 11/05/2024 BREAST CANCER SCREENING 12/03/2024 12/03/19 24, 08/17/2022, 06/09/2021, Additional history exists RSV VACCINE (60+ or ) (1 - 1-dose 75+ series) 2039 HEPATITIS B VACCINES Aged Out No long er eligible based on patient's age to complete this topic Medical Devices Implanted Type Area Camera Supervisor Device Identifier Shelf Expiration Date Model / Serial / Lot Patch Cv Rochelle-Guard 8x14cm Repair [id number] - [id number] Implanted:Qty: 1 on 08/21/2023 by Tl Resendiz MD at [facility] Biological N/A: Heart [employer] [id number] 11/10/2027 [id number] / / [id number]- [id number] Clip Ligating Horizon Med Ti [id number] - [facility] - [id number] Implanted:Qty: 1 on 08/21/2023 by Tl Resendiz MD at [facility] Clip N/A: Chest TELEFLEX- WECK CLOSURE SYS [id number] 12/05/2027 [id number] / / [id number] Hemostat Abraham Ah Powder 3gm [id number] - [id number] Implanted:Qty: 1 on 06/03/2024 by Faraz Pace MD at [facility] Hemostatic Left: Chest BARD DAVOL [id number] 08/02/2028 [id number] / / [id number] Lead Capsurefix Novus Mri 52cm Endocardial Pacing 5076-52 - [id number] Implanted:Qty: 1 on 06/03/2024 by Faraz Pace MD at [facility] Lead Right: Heart [employer]- CRM - BULK BUY [id number] 03/11/2026 5076-52 / [id number] 0V / Lead Selectsecure Mri Surescan 69cm Endocardical Pacing [id number] - [id number] Implanted:Qty: 1 on 06/03/2024 by Faraz Pace MD at [facility] Lead N/A: Heart [employer]- CARD RHYTHM MGMT [id number] 03/25/2026 [id number] / [id number] 3V / Pacemaker Bon Air Xt Dr Mri Ipg Dual Chmbr Surescan [id number] - [id number] Implanted:Qty: 1 on 06/03/2024 by Faraz Pace MD at [facility] Pacemaker Left: Chest [employer]- CRM - BULK BUY [id number] 10/02/2025 [id number] / [id number] 8G / Adh Bioglue 10ml [id number] - [id number] Implanted:Qty: 1 on 08/21/2023 by Tl Resendiz MD at [facility] Sealant N/A: Heart ARTIVION (FKA CRYOLIFE) 01/07/2025 [id number] -US / / [id number] Vlv Aortic Inspiris 21mm [id number] - [id number] Implanted:Qty: 1 on 08/21/2023 by Tl Resendiz MD at [facility] Valve N/A: Heart [employer] [id number] 04/15/2027 [id number] / [id number] / Procedures Procedure Name Priority Date/Time Associated Diagnosis Comments VA REM INTERROG PM/LDLS PM/IDS <90 D TECH REVIEW Routine 12/10/2024 11:55 PM PROFESSOR OF GEOGRAPHY Mobitz type 2 second degree AV block Cardiac pacemaker VA REM INTERROG PM/LDLS PM <90 D PHYS/QHP Routine 12/10/2024 11:55 PM PROFESSOR OF GEOGRAPHY Mobitz type 2 second degree AV block Cardiac pacemaker MAMMO 3D ANNALISE SCREEN BILAT W OR WO CAD Routine 12/03/2023 1:52 PM PROFESSOR OF GEOGRAPHY History of breast cancer LIPID PANEL Routine 10/04/2023 8:33 AM PROFESSOR OF GEOGRAPHY Hyperlipidemia, unspecified hyperlipidemia type HEMOGLOBIN A1C Routine 08/15/2023 2:49 PM CDT Dyspnea, unspecified type ENDOSCOPY, COLON, SCREENING Routine 11/02/2014 from Last 3 Months or Most Recently Relevant to Health Maintenance Results * VA REM INTERROG PM/LDLS PM <90 D PHYS/QHP, VA REM INTERROG PM/LDLS PM/IDS <90 D TECH REVIEW (12/10/2024 11:55 PM PROFESSOR OF GEOGRAPHY) 12/10/2024 11:5 5 PM PROFESSOR OF GEOGRAPHY Narrative INTERFACE SYSTEM - 12/11/2024 8:46 AM PROFESSOR OF GEOGRAPHY Remote Carelink Transmission Appropriate Dual Chamber pacemaker function. Presenting Rhythm: AsVp Battery: 10.7 years OUTDOOR RECREATION SPECIALIST 94% Since 09/12/2024 1 AT/AF episodes, burden <1%. Duration 16 sec c/w noise. No ventricular arrhythmias noted. Per [facility], Patient takes aspirin and metoprolol. Results sent via [email or web address] Procedure Note Provider, Historical - 12/11/2024 Remote Carelink Transmission Appropriate Dual Chamber pacemaker function. Presenting Rhythm: AsVp Battery: 10.7 years OUTDOOR RECREATION SPECIALIST 94% Since 09/12/2024 1 AT/AF episodes, burden <1%. Duration 16 sec c/w noise. No ventricular arrhythmias noted. Per Epic, Patient takes aspirin and metoprolol. Results sent via [email or web address] us Faraz Pace MD CARDIAC SERVICES ORDERABLES Ed ited Result - Final INTERFACE SYSTEM Refer to clinic/hospital department * MAMMO 3D ANNALISE SCREEN BILAT W OR WO CAD (12/03/2023 1:52 PM PROFESSOR OF GEOGRAPHY) Anatomical Region Laterality Modality Breast Bilateral Mammography 12/03/2023 1:52 PM PROFESSOR OF GEOGRAPHY Impressions 12/03/2023 2:25 PM PROFESSOR OF GEOGRAPHY IMPRESSION: No mammographic evidence of malignancy in the bilateral breasts. Routine screening mammography is recommended in one year. OVERALL FINAL ASSESSMENT: BI-RADS CATEGORY 2 - Benign findings DICTATION LOCATION: [facility] Narrative 12/03/2023 2:25 PM PROFESSOR OF GEOGRAPHY EXAMINATION: BILATERAL SCREENING DIGITAL MAMMOGRAPHY WITH TOMOSYNTHESIS AND CAD DATE: 12/03/2023 1:52 PM HISTORY: Routine screening mammography. Personal history of right breast cancer treated with right breast conservation therapy in 2013. COMPARISON: Multiple prior mammograms with dates ranging from 08/17/2022 to 09/03/2012. TECHNIQUE: A bilateral screening mammogram was performed. Low-dose full-field digital breast tomosynthesis examination was performed with 2D and 3D acquisitions. Examination is read in conjunction with computer aided detection. BREAST COMPOSITION: There are scattered areas of fibroglandular density. FINDINGS: There are stable mammographic findings consistent with prior right breast conservation therapy. There are biopsy clips associated with stable benign left breast calcifications. There are no suspicious masses, suspicious calcifications, or other suspicious findings in either breast. There has been no suspicious interval change. Computer aided detection was used in the interpretation of this examination. Procedure Note Ramses Andres MD - 12/03/2023 EXAMINATION: BILATERAL SCREENING DIGITAL MAMMOGRAPHY WITH TOMOSYNTHESIS AND CAD DATE: 12/03/2023 1:52 PM HISTORY: Routine screening mammography. Personal history of right breast cancer treated with right breast conservation therapy in 2013. COMPARISON: Multiple prior mammograms with dates ranging from 08/17/2022 to 09/03/2012. TECHNIQUE: A bilateral screening mammogram was performed. Low-dose full-field digital breast tomosynthesis examination was performed with 2D and 3D acquisitions. Examination is read in conjunction with computer aided detection. BREAST COMPOSITION: There are scattered areas of fibroglandular density. FINDINGS: There are stable mammographic findings consistent with prior right breast conservation therapy. There are biopsy clips associated with stable benign left breast calcifications. There are no suspicious masses, suspicious calcifications, or other suspicious findings in either breast. There has been no suspicious interval change. Computer aided detection was used in the interpretation of this examination. IMPRESSION: No mammographic evidence of malignancy in the bilateral breasts. Routine screening mammography is recommended in one year. OVERALL FINAL ASSESSMENT: BI-RADS CATEGORY 2 - Benign findings DICTATION LOCATION: [facility] us Farzana Gómez MD MAMMO ORDERABLES Final Resul t * (ABNORMAL) LIPID PANEL (10/04/2023 8:33 AM PROFESSOR OF GEOGRAPHY) CHOLESTEROL 160 <200 mg/dL [facility] HDL 51 > OR = 50 mg/dL [facility] TRIGLYCERIDE 153(H) <150 mg/dL [facility] LDL CALCULATED 84 mg/dL (calc) [facility] Comment: Reference range: <100 Desirable range <100 mg/dL for primary prevention; <70 mg/dL for patients with CHD or diabetic patients with > or = 2 CHD risk factors. LDL-C is now calculated using the Deepika calculation, which is a validated novel method providing better accuracy than the Friedewald equation in the estimation of LDL-C. Jsotin SS et al. ANDREW. 2013;310(19): 4859-0668 (http://education.Logi-Serve/faq/BUY574) CHOL/HDL RATIO 3.1 <5.0 (calc) [facility] TOTAL NON-HDL CHOL(LDL+VLDL) 109 <130 mg/dL (calc) [facility] Comment: For patients with diabetes plus 1 major ASCVD risk factor, treating to a non-HDL-C goal of <100 mg/dL (LDL-C of <70 mg/dL) is considered a therapeutic option. Test Performed at: [facility] [address] [address] [phone] [facility] Blood 10/04/2023 8:33 AM PROFESSOR OF GEOGRAPHY 10/04/2023 8:34 AM PROFESSOR OF GEOGRAPHY us [place] MD CHEMISTRY ORDERABLES Fi nal Result [facility] [phone] [place] [address] [address] [address] * (ABNORMAL) HEMOGLOBIN A1C (08/15/2023 2:49 PM CDT) HEMOGLOBIN A1C 7.1(H) <5.7 % 08/15/2023 3:47 PM CDT [facility] EST. AVG GLUCOSE, A1C 157 mg/dL 08/15/2023 3:47 PM CDT [facility] [address] [facility] Blood Venipuncture / Unknown 08/15/2023 2:49 PM CDT 08/15/2023 3:19 PM CDT Narrative [facility] - 08/15/2023 3:47 PM CDT HGB A1C INTERPRETATION NORMAL: <5.7% PRE-DIABETES: 5.7 - 6.4% DIABETES: 6.5% OR GREATER Tl Resendiz MD CHEMISTRY ORDERABLES Final Res ult [facility] [address] [facility] CLIA# [id number] [address] [place] [address] * ENDOSCOPY, COLON, SCREENING (11/02/2014) us Abstract Provider GI PROCEDURE ORDERABLES Edited Result - Final Performing Organization Address City/[facility]/ZIP Co de Phone Number [facility] from Last 3 Months or Most Recently Relevant to Health Maintenance Insurance [email or web address] OPEN ACCESS O [email or web address] OPEN ACCESS HMO Advance Directives For more information, please contact: [phone] * Full Code (Latest Code Status on File) Date Activated Date Inactivated Comments 06/01/2024 3:42 PM 06/04/2024 8:01 PM * Full Code Date Activated Date Inactivated Comments 08/21/2023 2:04 PM 08/24/2023 2:54 PM * Full Code Date Activated Date Inactivated Comments 08/21/2023 5:22 AM 08/21/2023 2:04 PM * Full Code Date Activated Date Inactivated Comments 08/03/2023 6:22 AM 08/03/2023 3:02 PM * Full Code Date Activated Date Inactivated Comments 10/24/2018 1:54 PM 10/25/2018 8:56 PM Care Teams Cutter Operator Brick Relationship Specialty Start Date End Date Marko Antonio MD PCP - General Family Practice 01/08/14
[2025-02-16 06:58] VITALS: BP 147/70; PULSE 82; RESP 20; TEMP 36.3; O2SAT 100
[2025-02-16] MEDS: LACTATED RINGERS 1,000 ML 150 ML IV CONT (07:19)
[2025-02-16 07:21] LABS: Glucose Point of Care 93 mg/dl (65-105)
--- NOTE | 2025-02-16 07:54 | PM.IMHP ---
H&P: HPI History of Present Illness Date/Time: 02/16/25 07:54 Chief Complaint: History of colon polyps Narrative: The patient has a history of colonic polyps, the last colonoscopy was approximately 5 years ago. Review of Systems Review of Systems: All systems reviewed & are unremarkable except as noted in HPI and below [facility] Past Medical History Medical History (Updated 02/16/25 @ 07:55 by German Barrett MD) History of breast cancer (2013) Right Surgical History Surgical History (Updated 08/31/23 @ 09:57 by Marko Antonio MD) History of aortic valve replacement (08/2023) History of dilatation and curettage (2018) With hysteroscopy Family History Family History (Updated 05/10/22 @ 15:24 by Ev Leblanc MA) Mother Acute myocardial infarction Cerebrovascular accident Hypertension Other Breast cancer Grandparent Diabetes mellitus Father Hypertension Sibling Hypertension Other Colon polyp Social History Social History (Updated 06/18/23 @ 13:05 by Enedelia Flor [employer]) Years smoked: 25 Smoking status: Former smoker Tobacco type: cigarettes Second hand tobacco smoke exposure: No Smoking end date: 11/05/11 Alcohol intake: never Substance use: never Substance use type: does not use Lack of Transportation: No Lack of Food: Never True Current Housing: I Have Housing Concerned About Future Housing: No Difficulty Paying Gas/Electric Bills: No Difficulty Paying for Meds: No Currently Unemployed: No Education: High School Diploma/GED Difficulty w/ Childcare or Family Care: No Living arrangements: with family Occupation/Education: occupation Gender identity (if verbalized by the patient): Female Sexual Orientation (if Verbalized by the Patient): Straight or Heterosexual Spiritual care concerns: No Agree to blood products: Yes Meds Home Medications and Allergies Home Medications ?Medication ?Instructions ?Recorded ?Confirmed ?Type losartan 50 mg tablet 50 mg PO DAILY 05/10/22 02/16/25 History furosemide 20 mg tablet 20 mg PO QAM PRN edema 07/03/22 02/16/25 History metoprolol succinate 50 mg 50 mg PO DAILY 11/14/23 02/16/25 History tablet,extended release 24 hr lancets 30 gauge #100 ea 03/27/24 07/27/24 Rx aspirin 81 mg tablet,delayed 81 mg PO DAILY 07/25/24 02/16/25 History release blood sugar diagnostic (OneTouch #100 ea 09/23/24 Rx Verio test strips) zolpidem 10 mg tablet (Ambien) 10 mg PO QHS PRN insomnia #30 tabs 11/23/24 02/04/25 Rx tirzepatide 12.5 mg/0.5 mL 12.5 mg (0.5 mL) subcut WEEKLY #2 12/05/24 02/16/25 Rx subcutaneous pen injector mL (Mounjaro) atorvastatin 10 mg tablet 10 mg PO DAILY #90 tabs 12/18/24 02/16/25 Rx metformin 500 mg tablet,extended 2,000 mg (4 x 500 mg) PO DAILY 12/18/24 02/16/25 Rx release 24 hr #360 tabs glimepiride 1 mg tablet 1 mg PO QAM #90 tabs 12/21/24 02/04/25 Rx tobramycin 0.3 %-dexamethasone 0.1 1 drp LEFT EYE QID #5 mL 12/30/24 02/04/25 Rx % eye drops,suspension Allergies Allergy/AdvReac Type Severity Reaction Status Date / Time Sulfa (Sulfonamide Allergy Severe HIVES Verified 02/16/25 06:54 Antibiotics) tramadol Allergy Severe HIVES Verified 02/16/25 06:54 pneumococcal vaccine Allergy Mild FEVER AND Verified 02/16/25 06:54 SITE REDNESS lisinopril AdvReac Intermediate Cough Verified 02/16/25 06:54 clindamycin AdvReac Mild ANXIETY Verified 02/16/25 06:54 Vital Signs Vital Signs - 24 hr 02/16/25 06:58 Temperature 97.3 F L Pulse Rate 82 Respiratory Rate 20 Blood Pressure 147/70 H Pulse Oximetry 100 Oxygen Delivery Room Air Exam Const: General: cooperative and healthy appearing Resp: Effort & Inspection: normal respiratory effort and able to speak in complete sentences Auscultation: clear to auscultation bilaterally Cardio: Rate: regular rate Rhythm: regular rhythm GI: Inspection: normal to inspection GI Palp: No No hepatosplenomegaly present Auscultation: normal bowel sounds Rectal Exam: deferred Skin: General skin exam: normal color Psych: Appearance: grossly normal Mental Status: mental status grossly normal Assessment and Plan Assessment and plan (1) History of colonic polyps: Code(s): Z86.0100 - Personal history of colon polyps, unspecified Status: Acute Assessment and Plan: The patient is deemed a good candidate for the procedure. Consent signed. Will proceed.
--- NOTE | 2025-02-16 07:55 | P.PNAN_ITS ---
Anes - Initial Pre Proc Eval Procedure: Operation Date: 02/16/25 08:00 Proposed Procedures p Screening Colonoscopy - German Barrett MD Date/Time: 02/16/25 07:55 Surgeon: Gemran Barrett MD Pre Op Diagnosis: Screening Patient Data Age: 59 Gender: F Height: 1.65 m Weight: 90.4 kg Last Vital Signs Temp 97.3 F L 02/16/25 06:58 Pulse 82 02/16/25 06:58 Resp 20 02/16/25 06:58 BP 147/70 H 02/16/25 06:58 Pulse Ox 100 02/16/25 06:58 O2 Del Method Room Air 02/16/25 06:58 Allergies Allergy/AdvReac Type Severity Reaction Status Date / Time Sulfa (Sulfonamide Allergy Severe HIVES Verified 02/16/25 06:54 Antibiotics) tramadol Allergy Severe HIVES Verified 02/16/25 06:54 pneumococcal vaccine Allergy Mild FEVER AND Verified 02/16/25 06:54 SITE REDNESS lisinopril AdvReac Intermediate Cough Verified 02/16/25 06:54 clindamycin AdvReac Mild ANXIETY Verified 02/16/25 06:54 Home Medications ?Medication ?Instructions ?Recorded ?Confirmed ?Type losartan 50 mg tablet 50 mg PO DAILY 05/10/22 02/16/25 History furosemide 20 mg tablet 20 mg PO QAM PRN edema 07/03/22 02/16/25 History metoprolol succinate 50 mg 50 mg PO DAILY 11/14/23 02/16/25 History tablet,extended release 24 hr lancets 30 gauge #100 ea 03/27/24 07/27/24 Rx aspirin 81 mg tablet,delayed 81 mg PO DAILY 07/25/24 02/16/25 History release blood sugar diagnostic (OneTouch #100 ea 09/23/24 Rx Verio test strips) zolpidem 10 mg tablet (Ambien) 10 mg PO QHS PRN insomnia #30 tabs 11/23/24 02/04/25 Rx tirzepatide 12.5 mg/0.5 mL 12.5 mg (0.5 mL) subcut WEEKLY #2 12/05/24 02/16/25 Rx subcutaneous pen injector mL (Mounjaro) atorvastatin 10 mg tablet 10 mg PO DAILY #90 tabs 12/18/24 02/16/25 Rx metformin 500 mg tablet,extended 2,000 mg (4 x 500 mg) PO DAILY 12/18/2402/16 Rx release 24 hr #360 tabs glimepiride 1 mg tablet 1 mg PO QAM #90 tabs 12/21/24 02/04/25 Rx tobramycin 0.3 %-dexamethasone 0.1 1 drp LEFT EYE QID #5 mL 12/30/24 02/04/25 Rx % eye drops,suspension Laboratory Tests 02/16/25 07:05 POC Capillary Glucose 93 mg/dl (65-105) Patient hx anesthesia problems: none Family hx anesthesia problems: none Results Review: All pre-operative results and documents have been reviewed as part of the pre-op erative evaluation. [facility] Past Medical History Medical History (Updated 02/16/25 @ 07:55 by German Barrett MD) History of breast cancer (2013) Right Surgical History Surgical History (Updated 08/31/23 @ 09:57 by Marko Antonio MD) History of aortic valve replacement (08/2023) History of dilatation and curettage (2018) With hysteroscopy Family History Family History (Updated 05/10/22 @ 15:24 by Ev Leblanc MA) Mother Acute myocardial infarction Cerebrovascular accident Hypertension Other Breast cancer Grandparent Diabetes mellitus Father Hypertension Sibling Hypertension Other Colon polyp Social History Social History (Updated 06/18/23 @ 13:05 by Enedelia Flor CMA) Years smoked: 25 Smoking status: Former smoker Tobacco type: cigarettes Second hand tobacco smoke exposure: No Smoking end date: 11/05/11 Alcohol intake: never Substance use: never Substance use type: does not use Lack of Transportation: No Lack of Food: Never True Current Housing: I Have Housing Concerned About Future Housing: No Difficulty Paying Gas/Electric Bills: No Difficulty Paying for Meds: No Currently Unemployed: No Education: High School Diploma/GED Difficulty w/ Childcare or Family Care: No Living arrangements: with family Occupation/Education: occupation Gender identity (if verbalized by the patient): Female Sexual Orientation (if Verbalized by the Patient): Straight or Heterosexual Spiritual care concerns: No Agree to blood products: Yes Anes - Eval Final PreProcedure Day of Procedure 02/16/25 07:55 Patient weight: normal Heart: regular rate and rhythm Lungs: clear to auscultation Airway: Mallampati scale class II Neurological: alert and oriented Last oral intake: >/= 8 hours ASA classification: III Emergent: no Anesthetic plan: proceed Anesthesia type and monitoring: general GIVS and standard monitoring Results Review: All pre-operative results and documents have been reviewed as part of the pre- operative evaluation. Informed Consent: The patient's anesthetic plan and its attendant risks and benefits were discussed with the patient/family/POA. Questions were solicited and answers provided to the satisfaction of the patient/family/POA.
[2025-02-16 08:22] VITALS: BP 112/63; PULSE 74; RESP 20; O2SAT 100
[2025-02-16 08:32] VITALS: BP 126/74; PULSE 73; RESP 22; O2SAT 100
[2025-02-16 08:42] VITALS: BP 138/106; PULSE 73; RESP 20; O2SAT 100
== END 2025-02-16 08:49 | disposition home or self-care (01) ==
PROVIDERS: PCP Family Medicine Adolescent Medicine; Referring Provider Family Medicine Adolescent Medicine; Visit Provider Internal Medicine Gastroenterology
PROC: 0DJD8ZZ Inspection of Lower Intestinal Tract, Via Natural or Artificial Opening Endoscopic (ICD-10-PCS; CPT 45378; principal; 2025-02-16 08:00)
DX: Z12.11 Encounter for screening for malignant neoplasm of colon (principal); Z79.82 Long term (current) use of aspirin; Z79.85 Long-term (current) use of injectable non-insulin antidiabetic drugs; Z79.84 Long term (current) use of oral hypoglycemic drugs; Z98.890 Other specified postprocedural states; Z95.2 Presence of prosthetic heart valve; Z87.891 Personal history of nicotine dependence; Z86.0100 Personal history of colon polyps, unspecified; Z85.3 Personal history of malignant neoplasm of breast; Z80.3 Family history of malignant neoplasm of breast; Z83.719 Family history of colon polyps, unspecified; Z82.49 Family history of ischemic heart disease and other diseases of the circulatory system
CPT/HCPCS: 45378; 82948; J7120

== ENCOUNTER 2025-06-30 09:49 | Outpatient (CLI) | payer OTHER, SELFPAY ==
--- NOTE | ~2025-06-30 | MM_ITS ---
EXAMINATION: MM diagnostic cesar LT w sissy INDICATION: 59-year old female; BI-RADS 3, short-term follow-up of probably benign Left breast cluster of microcalcifications which as been previously biopsied. COMPARISON: 12/31/2024 through 06/09/2022 TECHNIQUE: Digital breast tomosynthesis True lateral view and magnification CC and ML views of the left breast were obtained with computer-aided detection to assist in interpretation of the study. FINDINGS: There are scattered areas of fibroglandular density. The cluster of amorphous microcalcifications seen in the upper central Left breast is redemonstrated and has remained unchanged in the interval. IMPRESSION: Left breast probably benign amorphous calcifications have demonstrated 6 months stability. RECOMMENDATION: Diagnostic bilateral mammogram in 6 months. BI-RADS 3, PROBABLY BENIGN Reviewed, dictated and finalized at location B.
--- NOTE | ~2025-06-30 | DEXA_ITS ---
Bone Density Report Name: MELISSA BARRIGA Age: 59 Sex: Female Ethnicity: White Date of : 1965 Indication: postmenopausal; screening for osteoporosis; Referring Provider: [place] Study: Bone densitometry was performed. Exam Date: June 30, 2025 Accession number: [id number] Bone Density: Region BMD T-score Z-score Classification AP Spine(L1-L4) 0.983 -0.6 0.9 Normal Femoral Neck (Left) 0.822 -0.2 1.1 Normal Total Hip (Left) 1.018 0.6 1.6 Normal Femoral Neck (Right) 0.940 0.8 2.1 Normal Total Hip (Right) 1.115 1.4 2.4 Normal Total Hip Mean 1.066 1.0 2.0 Normal World Health Organization criteria for BMD impression classify patients as: Normal (T-score at or above -1.0), Osteopenia (T-score between -1.0 and -2.5), or Osteoporosis (T-score at or below -2.5). 10-year Fracture Risk: FRAX not reported because: All T-scores for Spine Total, Hip Total, Femoral Neck at or above -1.0 Previous Exams: -- Region Exam Age BMD T-score BMD Change BMD Change Date g/cm2 vs Baseline vs Previous -- AP Spine (L1-L4) 06/30/2025 59 0.983 -0.6 -9.0%# -7.0%# 02/13/2023 57 1.057 0.1 -2.1%* 4.9%* 12/22/2019 54 1.008 -0.4 -6.7%* -2.2%# 11/19/2017 52 1.031 -0.1 -4.6%# -4.6%# 09/23/2014 49 1.081 0.3 Total Hip(Left) 06/30/2025 59 1.018 0.6 -4.8%# -5.4%# 02/13/2023 57 1.076 1.1 0.6% 2.2% 12/22/2019 54 1.053 0.9 -1.6% -2.5%# 11/19/2017 52 1.080 1.1 1.0%# 1.0%# 09/23/2014 49 1.070 1.0 Total Hip(Right) 06/30/2025 59 1.115 1.4 -2.2%# -1.9%# 02/13/2023 57 1.136 1.6 -0.3% 4.4%* 12/22/2019 54 1.088 1.2 -4.5%* -4.3%# 11/19/2017 52 1.137 1.6 -0.2%# -0.2%# 09/23/2014 49 1.139 1.6 -- *Denotes significance at 95% confidence level, LSC for AP Spine = 0.022 g/cm2, LSC for Total Hip = 0.027 g/cm2 # Denotes dissimilar scan types or analysis methods Clinical Information Provided by Patient: Has used the following medications: Vitamin D Patient maximum height was 65.5 Menopause Age: 39 No regular weight bearing exercise Does not regularly consume dairy products Onset of menses at age 11 Number of children 0 Impression: The patient has normal bone mass. Unable to evaluate interval change due to the use of different scan modes. Discussion: BONE DENSITY IS ABOVE THE MINIMUM DESIRABLE LEVEL AT ALL SKELETAL SITES TESTED. This patient?s bone mineral density is above the minimum desirable level (T-score -1.0 or better) at all sites measured. The patient should follow a healthful lifestyle (good nutrition with adequate calcium and vitamin D, and appropriate weight-bearing exercise). Follow-Up: Consider repeating this study in 5 years or sooner if there is some new clinical indication. Reported by: TONY on 06/30/2025 10:57:00 AM. Reviewed, dictated and finalized at location A.
== END 2025-06-30 09:50 | disposition home or self-care (01) ==
PROVIDERS: PCP Family Medicine Adolescent Medicine; Visit Provider Obstetrics & Gynecology Gynecology
DX: R92.1 Mammographic calcification found on diagnostic imaging of breast (principal); Z78.0 Asymptomatic menopausal state
CPT/HCPCS: 77061; 77065; 77080; G0279